=== PATIENT | female | born 1990 | race African-American/Black ===

== ENCOUNTER 2019-02-21 18:22 | Emergency (ER) | payer OTHER ==
[~2019-02-21] VITALS: Ht 162.6 cm; Wt 63.5 kg
[2019-02-21 18:23] VITALS: BP 109/66
[2019-02-21] MEDS ORDERED: MOBIC7.5 MG PO (19:03)
== END 2019-02-21 19:09 | disposition home or self-care (01) ==
LOC: ER 18:22
DX: S00.93XA Contusion of unspecified part of head, initial encounter (principal); M54.2 Cervicalgia; M25.511 Pain in right shoulder; V89.2XXA Person injured in unspecified motor-vehicle accident, traffic, initial encounter; Y93.89 Activity, other specified; Y92.89 Other specified places as the place of occurrence of the external cause; Y99.8 Other external cause status

== ENCOUNTER 2019-12-20 18:22 | Emergency (ER) | payer OTHER ==
[~2019-12-20] VITALS: Ht 162.6 cm; Wt 72.6 kg
[~2019-12-20 18:22] MED LIST: MOBIC7.5 MG PO
[2019-12-20 19:23] VITALS: BP 113/62
== END 2019-12-20 19:26 | disposition home or self-care (01) ==
LOC: ER 18:22
DX: J02.9 Acute pharyngitis, unspecified (principal)